=== PATIENT | female | born 1950 | race Caucasian/White ===

== ENCOUNTER 2023-05-26 06:48 | Outpatient (OUT) | payer MEDICARE, OTHER, SELFPAY ==
[2023-05-26 07:23] LABS: Basophils Absolute Auto 0.1 10^3/uL (0.0-0.1); Basophils Percent Auto 0.8 % (0.2-2.0); Eosinophils Absolute Auto 0.1 10^3/uL (0.0-0.7); Eosinophils Percent Auto 1.1 % (0.9-7.0); Hemoglobin 12.6 g/dL (12.0-16.0); Immature Granulocytes Abs Auto 0.01 10^3/uL (0.00-0.03); Immature Granulocytes Pct Auto 0.2 % (0.0-0.5); Lymphocytes Absolute Auto 2.3 10^3/uL (1.2-3.8); Lymphocytes Percent Auto 36.6 % (20.5-60.0); Mean Corpuscular HGB Conc 32.3 g/dL (29.9-35.2); Mean Corpuscular Hemoglobin 28.6 pg (26.7-34.0); Mean Corpuscular Volume 88.4 fL (81.0-99.0); Mean Platelet Volume 9.8 fL (9.5-13.5); Monocytes Absolute Auto 0.6 10^3/uL (0.3-0.8); Monocytes Percent Auto 9.8 % (1.7-12.0); Neutrophils Absolute Auto 3.3 10^3/uL (1.4-6.5); Neutrophils Percent Auto 51.5 % (43.0-75.0); Platelet Count 279 10^3/uL (150-450); Red Blood Count 4.41 10^6/uL (4.20-5.40); Red Cell Distribution Width 12.8 % (11.0-15.0); White Blood Count 6.3 10^3/uL (4.0-11.0)
[2023-05-26 07:55] LABS: Estimated Average Glucose 171 mg/dL; Glycohemoglobin A1C 7.6 % (4.5-6.2)
[2023-05-26 08:31] LABS: Alanine Aminotransferase 25 U/L (14-59); Albumin Globulin Ratio 0.9; Albumin Level 3.7 g/dL (3.4-5.0); Alkaline Phosphatase 55 U/L (46-116); Anion Gap 14.8; Aspartate Amino Transferase 14 U/L (15-37); Bilirubin Total 0.5 mg/dL (0.2-1.0); Calcium 9.1 mg/dL (8.5-10.1); Carbon Dioxide 26.9 mmol/L (21.0-32.0); Chloride 101 mmol/L (98-107); Chol HDL Ratio 3.2; Cholesterol 211 mg/dL (<=200); Estimated GFR (African America >60 (>=60); Estimated GFR (Non-African Ame >60 (>=60); Glucose 178 mg/dL (74-106); HDL Cholesterol 65 mg/dL (40-60); Potassium 4.7 mmol/L (3.5-5.1); Sodium 138 mmol/L (136-145); Thyroid Stimulating Hormone 3.441 uIU/mL (0.358-3.740); Total Protein 7.7 g/dL (6.4-8.2); Triglycerides 108 mg/dL (<=150); VLDL CHOLESTEROL 21.6 mg/dL
== END 2023-05-26 06:49 | disposition home or self-care (01) ==
LOC: LAB 06:55
PROVIDERS: PCP Family Medicine; Visit Provider Family Medicine
DX: E11.65 Type 2 diabetes mellitus with hyperglycemia (principal); I10 Essential (primary) hypertension; E78.5 Hyperlipidemia, unspecified; R73.09 Other abnormal glucose; Z12.12 Encounter for screening for malignant neoplasm of rectum; D64.9 Anemia, unspecified; E55.9 Vitamin D deficiency, unspecified
CPT/HCPCS: 36415; 80053; 80061; 82306; 83036; 83540; 84436; 84443; 84481; 85025

== ENCOUNTER 2023-11-08 13:18 | Outpatient (OUT) | payer MEDICARE, OTHER, SELFPAY ==
--- NOTE | 2023-11-08 13:20 | MM_ITS ---
Patient Name: PRITI BELTRAN MR#: [id number] : 1950 Exam Date: 11/08/2023 Ordering Doctor: DR Joel Roberson . RADIOLOGY REPORT PROCEDURE: MM TOMOSYNTHESIS SCREENING BI COMPARISON: None. INDICATIONS: Screening Calculator Name NCI Breast Cancer Risk Assessment Tool 5 Year Breast Cancer Risk 1.40% Lifetime Breast Cancer Risk 4.00% Personal Breast Cancer No Personal Ovarian Cancer No Treatments None Family Cancers Sister with unknown cancer at age 47. LOCATION: [facility] BREAST COMPOSITION: There are scattered areas of fibroglandular density. FINDINGS: DIAGNOSTIC CATEGORY 2--BENIGN FINDING: RIGHT BREAST: No significant suspicious finding. Scattered benign-appearing lymph nodes are present. LEFT BREAST: No significant suspicious finding. RECOMMENDATIONS: ROUTINE MAMMOGRAM AND CLINICAL EVALUATION IN 12 MONTHS. PLEASE NOTE: A NORMAL MAMMOGRAM DOES NOT EXCLUDE THE POSSIBILITY OF BREAST CANCER. A CLINICALLY SUSPICIOUS PALPABLE LUMP SHOULD BE BIOPSIED. Dictated by: Augie Porter M.D. on 11/17/2023 at 15:01 Approved by: Augie Porter M.D. on 11/17/2023 at 15:03
== END 2023-11-08 13:19 | disposition home or self-care (01) ==
LOC: MAMMO 13:18
PROVIDERS: PCP Family Medicine; Visit Provider Family Medicine
DX: Z12.31 Encounter for screening mammogram for malignant neoplasm of breast (principal); Z80.8 Family history of malignant neoplasm of other organs or systems
CPT/HCPCS: 77063; 77067

== ENCOUNTER 2024-07-08 08:20 | Outpatient (OUT) | payer MEDICARE, SELFPAY ==
--- OUTSIDE RECORDS SUMMARY | 2024-07-08 08:35 | XMS_ITS | CCD ---
Author Organization [facility] Care Team Providers Care Veterinary Physiologist Name Role Phone DR KAVITHA LAW Attending Unavailable DR KAVITHA LAW Admitting Unavailable DR KAVITHA LAW Primary Care Unavailable DR KAVITHA LAW Consulting Unavailable DR KAVITHA LAW Attending Unavailable DR KAVITHA LAW Admitting Unavailable DR KAVITHA LAW Primary Care Unavailable Problems Problem Classification Problem Date Documented Da te Episodic/Chronic Diabetes mellitus with complications (1 source) Type 2 diabetes mellitus with hyperglycemia; Translations: [TYPE 2 DM W/HYPERGLYCEMIA] Onset: 01-25-2022 Chronic Disorders of lipid metabolism (1 source) Hyperlipidemia, unspecified; Translations: [HYPERLIPIDEMIA UNSPECIFIED] Onset: 01-25-2022 Chronic Malaise and fatigue (4 sources) Other fatigue; Translations: [OTHER FATIGUE] Onset: 01-22-2022 Episodic Other aftercare (1 source) 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 Jarrod Rainey Basophils/100 WBC (Bld) 1.0 % Normal 0.2-2.0 [facility] Comment on above: Performed By: #### C BC #### [facility] [address] [address] [address] Jarrod Rainey EO # 0.1 103/ul Normal 0.0-0.7 [facility] Comment on above: Performed By: #### C BC #### [facility] [address] [place] [address] Dr. Jarrod Rainey Eosinophils/100 WBC (Bld) 2.2 % Normal 0.9-7.0 [facility] Comment on above: Performed By: #### C BC #### [facility] [address] [place] [address] Dr. Jarrod Rainey Erythrocyte distribution width (RBC) [Ratio] 12.5 % Normal 11.0-15.0 [facility] Comment on above: Performed By: #### C BC #### [facility] [address] [place] [address] Dr. Jarrod Rainey Hematocrit (Bld) [Volume fraction] 40.0 % Normal 36.0-48.0 [facility] Comment on above: Performed By: #### C BC #### [facility] [address] [place] [address] Dr. Jarrod Rainey Hemoglobin (Bld) [Mass/Vol] 13.3 g/dL Normal 12.0-16.0 [facility] Comment on above: Performed By: #### C BC #### [facility] [address] [place] [address] Dr. Jarrod Rainey IG # 0.01 10e3/ul Normal 0.00-0.03 [facility] Comment on above: Performed By: #### C BC #### [facility] [address] [place] [address] Dr. Jarrod Rainey IG % 0.2 % Normal 0.0-0.5 [facility] Comment on above: Performed By: #### C BC #### [facility] [address] [place] [address] Dr. Jarrod Rainey LYMPH # 2.4 103/ul Normal 1.2-3.8 [facility] Comment on above: Performed By: #### C BC #### [facility] [address] [place] [address] Dr. Jarrod Rainey Lymphocytes/100 WBC (Bld) 40.2 % Normal 20.5-60.0 [facility] Comment on above: Performed By: #### C BC #### [facility] [address] [place] [address] Dr. Jarrod Rainey MANUAL DIFF REQ NO Normal [facility] Comment on above: Performed By: #### C BC #### [facility] [address] [place] [address] Dr. Jarrod Rainey MCH (RBC) [Entitic mass] 29.5 pg Normal 26.7-34.0 [facility] Comment on above: Performed By: #### C BC #### [facility] [address] [place] [address] Dr. Jarrod Rainey MCHC (RBC) [Mass/Vol] 33.3 g/dL Normal 29.9-35.2 [facility] Comment on above: Performed By: #### C BC #### [facility] [address] [place] [address] Dr. Jarrod Rainey MCV (RBC) [Entitic vol] 88.7 fL Normal 81.0-99.0 [facility] Comment on above: Performed By: #### C BC #### [facility] [address] [place] [address] Dr. Jarrod Rainey MONO # 0.5 103/ul Normal 0.3-0.8 [facility] Comment on above: Performed By: #### C BC #### [facility] [address] [place] [address] Dr. Jarrod Rainey Monocytes/100 WBC (Bld) 8.1 % Normal 1.7-12.0 [facility] Comment on above: Performed By: #### C BC #### [facility] [address] [place] [address] Dr. Jarrod Rainey NEUT # 2.9 103/ul Normal 1.4-6.5 [facility] Comment on above: Performed By: #### C BC #### [facility] [address] [place] [address] Dr. Jarrod Rainey Neutrophils/100 WBC (Bld) 48.3 % Normal 43.0-75.0 [facility] Comment on above: Performed By: #### C BC #### [facility] [address] [address] [address] Jarrod Rainey Platelet mean volume (Bld) [Entitic vol] 9.5 fL Normal 9.5-13.5 [facility] Comment on above: Performed By: #### C BC #### [facility] [address] [address] [address] Jarrod Rainey PLT 256 103/ul Normal 150-450 [facility] Comment on above: Performed By: #### C BC #### [facility] [address] [address] [address] Jarrod Rainey RBC 4.51 106/ul Normal 4.20-5.40 [facility] Comment on above: Performed By: #### C BC #### [facility] [address] [place] [address] Dr. Jarrod Rainey WBC 5.9 103/ul Normal 4.0-11.0 [facility] Comment on above: Performed By: #### C BC #### [facility] [address] [place] [address] Dr. Jarrod Rainey FREE T3on 01-22-2022 FREE T3 2.60 pg/mlL Normal 2.18-3.98 [facility] Comment on above: Performed By: #### T 4, LIPID, FT3, TSH, CMP #### [facility] [address] [place] [address] Dr. Jarrod Rainey GLYCOHEMOGLOBIN A1Con 2021 ADA RECOMMENDATION SEE BELOW Normal [facility] Comment on above: Result Comment: ADA RECOMMENDED LIMIT 4.0 - 6.0 ADA THERAPEUTIC TARGET < 7.0 ACTION SUGGESTED > 7.0 Performed By: #### A 1C #### [facility] [address] [place] [address] Dr. Jarrod Rainey Glucose [Mass/Vol] 169 mg/dL Normal [facility] Comment on above: Performed By: #### A 1C #### [facility] [address] [place] [address] Dr. Jarrod Rainey HbA1c (Bld) [Mass fraction] 7.5 % Critically high 4.5-6.2 [facility] Comment on above: Performed By: #### A 1C #### [facility] [address] [place] [address] Dr. Jarrod Rainey LIPID PROFILEon 01-22-2022 CHOL-HDL RATIO NORM SEE BELOW Normal [facility] Comment on above: Result Comment: 3.3 - 4.4 LOW RISK 4.4 - 7.1 AVERAGE RISK 7.1 - 11.0 MODERATE RISK >11.0 HIGH RISK Performed By: #### T 4, LIPID, FT3, TSH, CMP #### [facility] [address] [place] [address] Dr. Jarrod Rainey Cholesterol [Mass/Vol] 219 mg/dL Critically high <=200 [facility] Comment on above: Performed By: #### T 4, LIPID, FT3, TSH, CMP #### [facility] [address] [place] [address] Dr. Jarrod Rainey Cholesterol in HDL [Mass/Vol] 57 mg/dL Normal 40-60 [facility] Comment on above: Performed By: #### T 4, LIPID, FT3, TSH, CMP #### [facility] [address] [place] [address] Dr. Jarrod Rainey Cholesterol in LDL [Mass/Vol] 138.8 mg/dL Normal [facility] Comment on above: Performed By: #### T 4, LIPID, FT3, TSH, CMP #### [facility] [address] [place] [address] Dr. Jarrod Rainey Cholesterol.total/Cho lesterol in HDL [Mass ratio] 3.8 {ratio} Normal [facility] Comment on above: Performed By: #### T 4, LIPID, FT3, TSH, CMP #### [facility] [address] [place] [address] Dr. Jarrod Rainey HDL NORMAL > or = 60 mg/dl - LOW CARDIOVASCULAR RISK <40 mg/dl - HIGH CARDIOVASCULAR RISK Normal [facility] Comment on above: Performed By: #### T 4, LIPID, FT3, TSH, CMP #### [facility] [address] [place] [address] Dr. Jarrod Rainey LDL CALC NORMAL SEE BELOW Normal [facility] Comment on above: Result Comment: <100 mg/dl OPTIMAL 100 - 129 mg/dl NEAR OR ABOVE OPTIMAL 130 - 159 mg/dl BORDERLINE HIGH 160 - 189 mg/dl HIGH >190 mg/dl VERY HIGH Performed By: #### T 4, LIPID, FT3, TSH, CMP #### [facility] [address] [address] [address] Jarrod Rainey Triglyceride [Mass/Vol] 116 mg/dL Normal <=150 [facility] Comment on above: Performed By: #### T 4, LIPID, FT3, TSH, CMP #### [facility] [address] [address] [address] Jarrod Rainey VLDL CALC 23.2 mg/dL Normal [facility] Comment on above: Performed By: #### T 4, LIPID, FT3, TSH, CMP #### [facility] [address] [address] [address] Jarrod Rainey PROF 14(COMP METB)on 022 Albumin [Mass/Vol] 3.6 g/dL Normal 3.4-5.0 [facility] Comment on above: Performed By: #### T 4, LIPID, FT3, TSH, CMP #### [facility] [address] [address] [address] Jarrod Rainey Albumin/Globulin [Mass ratio] 0.9 {ratio} Normal [facility] Comment on above: Performed By: #### T 4, LIPID, FT3, TSH, CMP #### [facility] [address] [address] [address] Jarrod Rainey ALP [Catalytic activity/Vol] 61 U/L Normal 46-116 [facility] Comment on above: Performed By: #### T 4, LIPID, FT3, TSH, CMP #### [facility] [address] [address] [address] Jarrod Rainey ALT [Catalytic activity/Vol] 22 U/L Normal 14-59 [facility] Comment on above: Performed By: #### T 4, LIPID, FT3, TSH, CMP #### [facility] [address] [place] [address] Dr. Jarrod Rainey Anion gap [Moles/Vol] 11.7 mmol/L Normal [facility] Comment on above: Performed By: #### T 4, LIPID, FT3, TSH, CMP #### [facility] [address] [place] [address] Dr. Jarrod Rainey AST [Catalytic activity/Vol] 13 U/L Critically low 15-37 [facility] Comment on above: Performed By: #### T 4, LIPID, FT3, TSH, CMP #### [facility] [address] [place] [address] Dr. Jarrod Rainey Bilirubin [Mass/Vol] 0.6 mg/dL Normal 0.2-1.0 [facility] Comment on above: Performed By: #### T 4, LIPID, FT3, TSH, CMP #### [facility] [address] [place] [address] Dr. Jarrod Rainey Calcium [Mass/Vol] 8.7 mg/dL Normal 8.5-10.1 [facility] Comment on above: Performed By: #### T 4, LIPID, FT3, TSH, CMP #### [facility] [address] [place] [address] Dr. Jarrod Rainey Chloride [Moles/Vol] 106 mmol/L Normal 98-107 [facility] Comment on above: Performed By: #### T 4, LIPID, FT3, TSH, CMP #### [facility] [address] [place] [address] Dr. Jarrod Rainey CO2 [Moles/Vol] 26.5 mmol/L Normal 21.0-32.0 [facility] Comment on above: Performed By: #### T 4, LIPID, FT3, TSH, CMP #### [facility] [address] [place] [address] Dr. Jarrod Rainey Creatinine [Mass/Vol] 0.83 mg/dL Normal 0.55-1.02 [facility] Comment on above: Performed By: #### T 4, LIPID, FT3, TSH, CMP #### [facility] [address] [address] [address] Jarrod Rainey EGFR-AF LAO >60 Normal >=60 [facility] Comment on above: Performed By: #### T 4, LIPID, FT3, TSH, CMP #### [facility] [address] [address] [address] Jarrod Rainey EGFR-NON AF LAO >60 Normal >=60 [facility] Comment on above: Performed By: #### T 4, LIPID, FT3, TSH, CMP #### [facility] [address] [place] [address] Dr. Jarrod Rainey Globulin (S) [Mass/Vol] 3.9 g/dL Normal [facility] Comment on above: Performed By: #### T 4, LIPID, FT3, TSH, CMP #### [facility] [address] [place] [address] Dr. Jarrod Rainey Glucose [Mass/Vol] 155 mg/dL Critically high 74-106 [facility] Comment on above: Performed By: #### T 4, LIPID, FT3, TSH, CMP #### [facility] [address] [address] [address] Jarrod Rainey Potassium [Moles/Vol] 4.2 mmol/L Normal 3.5-5.1 [facility] Comment on above: Performed By: #### T 4, LIPID, FT3, TSH, CMP #### [facility] [address] [address] [address] Jarrod Rainey Protein [Mass/Vol] 7.5 g/dL Normal 6.4-8.2 [facility] Comment on above: Performed By: #### T 4, LIPID, FT3, TSH, CMP #### [facility] [address] [address] [address] Jarrod Rainey Sodium [Moles/Vol] 140 mmol/L Normal 136-145 [facility] Comment on above: Performed By: #### T 4, LIPID, FT3, TSH, CMP #### [facility] [address] [address] [address] Jarrod Rainey Urea nitrogen [Mass/Vol] 19.0 mg/dL Critically high 7.0-18.0 [facility] Comment on above: Performed By: #### T 4, LIPID, FT3, TSH, CMP #### [facility] [address] [address] [address] Jarrod Rainey Urea nitrogen/Creatinine [Mass ratio] 22.9 mg/mg Normal [facility] Comment on above: Performed By: #### T 4, LIPID, FT3, TSH, CMP #### [facility] [address] [address] [address] Jarrod Rainey T4on 01-22-2022 T4 [Mass/Vol] 9.30 ug/dL Normal 4.80-13.90 [facility] Comment on above: Performed By: #### T 4, LIPID, FT3, TSH, CMP #### [facility] [address] [address] [address] Jarrod Rainey TSHon 01-22-2022 TSH 2.549 uIU/mL Normal 0.358-3.740 [facility] Comment on above: Performed By: #### T 4, LIPID, FT3, TSH, CMP #### [facility] [address] [address] [address] Jarrod Rainey VITAMIN D 25 OHon 01-22-2022 VIT D 25-OH 85.0 ng/mL Normal [facility] Comment on above: Performed By: #### V ITAD #### [facility] [address] [place] [address] Dr. Jarrod Rainey VIT D RANGES SEE BELOW Normal [facility] Comment on above: Result Comment: <20 ng/mL Vit D deficient 20 - <30 ng/mL Vit D insufficient 30 - 100 ng/mL Vit D sufficient >100 ng/mL Potential Toxicity Performed By: #### V ITAD #### [facility] [address] [place] [address] Dr. Jarrod Rainey Encounters Encounter Date Encounter Type Care Provider Facility Start: 01-22-2022 End: 01-23-[address] KAVITHA LAW Facility:[facility] Start: 12-10-[address] KAVITHA LAW Facility :[facility] Payers Date Payer Category Payer Medicare [id number] 1957 Self-pay 1957 Unknown [id number] 1950 Unknown [id number] 1950 Unknown [id number] Summary Purpose Family History No Family History Records Found Advance Directives No Advanced Directives Records Found Additional Source Comments INFORMATION SOURCE (unrecogn ized section and content) DATE CREATED AUTHOR 01/27/[address] [facility] FOR RECORDS PERTAINING TO PATIENTS WHO ARE OR HAVE BEEN ENROLLED IN A CHEMICAL DEPENDENCY/SUBSTANCEABUSE PROGRAM, SOME INFORMATION MAY BE OMITTED. This clinical summary was aggregated from multiple sources. Caution should be exercised in using it in the provision of clinical care. This summary normalizes information from multiple sources, and as a consequence, information in this document may materially change the coding, format and clinical context of patient data. In addition, data may be omitted in some cases. CLINICAL DECISIONS SHOULD BE BASED ON THE PRIMARY CLINICAL RECORDS. [facility] provides no warranty or guarantee of the accuracy or completeness of information in this document.
[2024-07-08 08:48] LABS: Estimated Average Glucose 154 mg/dL
[2024-07-08 08:56] LABS: Alanine Aminotransferase 23 U/L (14-59); Albumin Level 3.5 g/dL (3.4-5.0); Alkaline Phosphatase 63 U/L (46-116); Anion Gap 13.1; Aspartate Amino Transferase 17 U/L (15-37); BUN Creatinine Ratio 23.2; Bilirubin Total 0.3 mg/dL (0.2-1.0); Calcium 8.6 mg/dL (8.5-10.1); Carbon Dioxide 26.2 mmol/L (21.0-32.0); Chloride 104 mmol/L (98-107); Estimated GFR (African America >60 (>=60 mL/min/1.73m^2); Estimated GFR (Non-African Ame >60 (>=60 mL/min/1.73m^2); Globulin 3.6 g/dL; Glucose 121 mg/dL (74-106); Potassium 4.3 mmol/L (3.5-5.1); Sodium 139 mmol/L (136-145); Total Protein 7.1 g/dL (6.4-8.2)
== END 2024-07-08 08:21 | disposition home or self-care (01) ==
LOC: LAB 08:24
PROVIDERS: PCP Family Medicine; Visit Provider Family Medicine
DX: R53.83 Other fatigue (principal); E11.65 Type 2 diabetes mellitus with hyperglycemia; I10 Essential (primary) hypertension
CPT/HCPCS: 36415; 80053; 83036